=== PATIENT | female | born 2000 | race Hispanic/Latino ===

== ENCOUNTER 2022-01-12 22:48 | Outpatient (CLI) | payer MEDICAID ==
[2022-01-12] MEDS ORDERED: LACTATED RINGERS 500 ML IV ONE (23:56)
[2022-01-13 00:20] LABS: Bilirubin,Urine NEG (Negative); Blood,Urine NEG (Negative); Color,Urine Straw (Yellow); Protein,Urine <15 mg/dL mg/dL (Negative); Urobilinogen,Urine < 2.0 mg/dL (<2.0)
[2022-01-13 02:05] VITALS: BP 83/60
--- NOTE | 2022-01-13 03:41 | Ultrasound Report ---
ULTRASOUND OBSTETRIC LIMITED INDICATION / CLINICAL INFORMATION: R/o abruption. Clinical Gestational Age (GA) in weeks, days: 26 weeks TECHNIQUE: Transabdominal. COMPARISON: None available. FINDINGS: HEART RATE (beats per minute): 138 PRESENTATION: Cephalic. ADDITIONAL FINDINGS: Placenta is anterior in location with grade 0. No evidence to suggest abruption or previa. IMPRESSION: 1. Single viable IUP in cephalic presentation. 2. No evidence of abruption. Signer Name: Arely Chaudhari MD Signed: 01/13/2022 3:37 AM Workstation Name: [id number]
== END 2022-01-13 02:22 | disposition home or self-care (01) ==
LOC: TRG 22:48 → APU 22:49 → TRG 01-13 02:22
PROVIDERS: ATTEND Obstetrics & Gynecology
DX: O26.892 Other specified pregnancy related conditions, second trimester (principal); R10.9 Unspecified abdominal pain; Z3A.26 26 weeks gestation of pregnancy
CPT/HCPCS: 76815; 81001

== ENCOUNTER 2022-03-29 15:38 | Outpatient (CLI) | payer MEDICAID ==
[2022-03-29 16:06] VITALS: BP 91/57
--- NOTE | 2022-03-29 18:26 | Ultrasound Report ---
ULTRASOUND BIOPHYSICAL PROFILE INDICATION / CLINICAL INFORMATION: ramirez placenta scan r/o abruption. COMPARISON: None available. FINDINGS: BREATHING MOVEMENT = 2 GROSS BODY MOVEMENT = 2 TONE = 2 QUALITATIVE AMNIOTIC FLUID VOLUME = 2 TOTAL BIOPHYSICAL SCORE = 8/8 AMNIOTIC FLUID INDEX (cm) = 9.5 PRESENTATION: Cephalic. HEART RATE (beats per minute): 121 IMPRESSION: 1. biophysical profile = 8/8 2. No definite evidence of placenta abruption is visualized. Signer Name: Eulalio Melara MD Signed: 03/29/2022 6:21 PM Workstation Name: [email or web address]
== END 2022-03-29 17:32 | disposition home or self-care (01) ==
LOC: TRG 15:38 → APU 15:39 → TRG 17:32
PROVIDERS: ATTEND Obstetrics & Gynecology
DX: O26.893 Other specified pregnancy related conditions, third trimester (principal); Z3A.37 37 weeks gestation of pregnancy; W19.XXXA Unspecified fall, initial encounter; Y93.89 Activity, other specified; Y92.89 Other specified places as the place of occurrence of the external cause; Y99.8 Other external cause status
CPT/HCPCS: 59025; 76815; 76819